=== PATIENT | male | born 1985 | race American Indian/Alaskan Native ===

== ENCOUNTER 2017-05-05 09:23 | Observation (INO) | payer MEDICAID ==
[2017-05-05 09:29] VITALS: BMI 29.9
[2017-05-05] MEDS ORDERED: Sodium Chloride 0.9% 1,000 ML IV STA (09:37)
--- NOTE | 2017-05-05 10:03 | RAD ---
PROCEDURE: CHEST RADIOGRAPH, 1 VIEW HISTORY: Diabetic COMPARISON: None available. FINDINGS: LUNGS: Clear. PLEURA: No pneumothorax or pleural fluid seen. CARDIOVASCULAR: Normal. OSSEOUS STRUCTURES: No significant abnormalities. VISUALIZED UPPER ABDOMEN: Normal. OTHER FINDINGS: None. IMPRESSION: No active disease.
[2017-05-05 10:38] LABS: URINE BILIRUBIN NEGATIVE (NEGATIVE); URINE BLOOD NEGATIVE (NEGATIVE); URINE CLARITY Clear (Clear); URINE COLOR Straw (YELLOW); URINE GLUCOSE (UA) 3+ mg/dL (Normal); URINE LEUKOCYTE ESTERASE NEG Leu/uL (Negative); URINE NITRATE NEGATIVE (NEGATIVE); URINE PROTEIN NEGATIVE (NEGATIVE); URINE UROBILINOGEN NORMAL mg/dL (0.2-1.0)
[2017-05-05 10:45] LABS: BASO # 0.1 K/uL (0.0-0.2); BASO % 1.3 % (0.0-2.0); EOS # 0.2 K/uL (0.0-0.7); EOS % 3.6 % (0.0-4.0); HEMOGLOBIN 13.3 g/dL (12.0-18.0); LYMPH # 2.6 K/uL (1.0-4.3); MEAN CELL VOLUME 75.4 fL (80.0-94.0); MEAN CORPUSCULAR HEMOGLOBIN 25.2 pg (27.0-31.0); MEAN CORPUSCULAR HGB CONC 33.4 g/dL (33.0-37.0); MEAN PLATELET VOLUME 9.2 fL (7.2-11.7); MONO # 0.3 K/uL (0.0-0.8); MONO % 5.3 % (0.0-10.0); NEUT # 2.7 K/uL (1.8-7.0); NEUT % 45.8 % (50.0-75.0); RBC 5.28 Mil/uL (4.40-5.90); RED CELL DISTRIBUTION WIDTH 16.7 % (11.5-14.5); WHITE BLOOD COUNT 5.8 K/uL (4.8-10.8)
[2017-05-05 10:51] LABS: VENOUS BLOOD GAS BASE EXCESS 3.1 mmol/L (0.0-2.0); VENOUS BLOOD GAS PCO2 56 mmHg (40-60); VENOUS BLOOD GAS PO2 12 mm/Hg (30-55); VENOUS BLOOD PH 7.34 (7.32-7.43)
--- NOTE | 2017-05-05 10:56 | C.PDOC ---
History Of Present Illness 31 year old male with a past medical history of diabetes who presents to the emergency department with a complaint of not feeling right for a couple of months and experiencing polydipsia, polyuria, and generalized weakness. Reports he went to the pharmacy and suggested to take over the counter vitamins that did not help. Denies any further medical complaints. Of note, patient was seen by his PMD yesterday, 05/04/2017, with blood work. Patient was called by PMD today and told that his sugar was over 600 and advised to visit the emergency department for further evaluation. Time Seen by Provider: 05/05/17 09:34 Chief Complaint (Nursing): High Blood Sugar History Per: Patient History/Exam Limitations: no limitations Past Medical History Reviewed: Historical Data, Nursing Documentation, Vital Signs Vital Signs: Last Vital Signs Temp 98.9 F 05/05/17 12:25 Pulse 72 05/05/17 12:25 Resp 18 05/05/17 12:25 BP 127/72 05/05/17 12:25 Pulse Ox 98 05/05/17 12:25 - Medical History PMH: Diabetes Family History: States: Diabetes - Social History Hx Alcohol Use: No Hx Substance Use: No Review Of Systems Except As Marked, All Systems Reviewed And Found Negative. (As per HPI, otherwise negative) Constitutional: Positive for: Weakness (Generalized) Genitourinary: Positive for: Other (polydipsya and polyuria) Physical Exam - Physical Exam Appears: Well, Non-toxic, Toxic Skin: Normal Color, Warm, Dry Head: Normacephalic Tongue: Normal Appearing Lips: Normal Appearing Teeth: Normal Dentition Gingiva: Normal Appearing Lymphatic: Normal Exam Respiratory: Normal Breath Sounds, No Decreased Breath Sounds, No Accessory Muscle Use Gastrointestinal/Abdominal: Normal Exam, Soft, No Tenderness Extremity: Normal ROM, No Pedal Edema Neurological/Psych: Oriented x3 Gait: Steady ED Course And Treatment - Laboratory Results Result Diagrams: 05/05/17 10:42 05/05/17 10:42 O2 Sat by Pulse Oximetry: 100 (RA) Pulse Ox Interpretation: Normal Medical Decision Making Medical Decision Making: Time: 936 --VBG --CMP --Ketone, Serum --CBC w/ diff --Chest x-ray --Sodium Chloride 1L --Urinalysis Time: 1001 --Chest x-ray FINDINGS: LUNGS: Clear. PLEURA: No pneumothorax or pleural fluid seen. CARDIOVASCULAR: Normal. OSSEOUS STRUCTURES: No significant abnormalities. VISUALIZED UPPER ABDOMEN: Normal. OTHER FINDINGS: None. IMPRESSION: No active disease. Time: 1136 --Admit to hospital routine: as observation for new oncet DM under the care of Dr. Trinity Bolanos MD Disposition - Disposition Disposition: HOSPITALIZED Disposition Time: 11:37 Condition: FAIR - Clinical Impression Clinical Impression: Diabetes mellitus, new onset Decision To Admit - Pt Status Changed To: Hospital Disposition Of: Observation - . Bed Request Type: Regular Admitting Physician: Trinity Bolanos Patient Diagnosis: Diabetes mellitus, new onset
[2017-05-05 11:04] LABS: ALB/GLOB RATIO 1.2 (1.0-2.1); ALBUMIN 4.3 g/dL (3.5-5.0); ALT/SGPT 76 U/L (21-72); AST/SGOT 78 U/L (17-59); CALCIUM 9.3 mg/dl (8.6-10.4); GFR AFRICAN-AMERICAN > 60; GFR NON-AFRICAN AMERICAN > 60
[2017-05-05 11:06] LABS: BLOOD UREA NITROGEN 14 mg/dL (9-20)
--- NOTE | 2017-05-05 11:41 | CP.PCM.HP ---
<Dot Thomas - Last Filed: 05/05/17 13:57> History of Present Illness - History of Present Illness History of Present Illness: Medicine Note for Hospitalist Service- Dr. Sales's Service CC: Sent in by PMD HPI: 31M with no significant PMHx presents to the ED after being sent in by PMD due to elevated sugars. Patient reports for the past 2 months he started to notice he had symptoms of polyphagia, polydipsia, and polyuria. He spoke to family members who are known diagnosed diabetics about his symptoms and afterwards he started to change his diet, eating more organic foods. Patient went to go see his PMD Dr. Christie (self pay) who he sees as needed. Labs were drawn. This morning, he was called by his PMD reporting his sugars were 600 and that he should go to the ED. Upon admission, patient was AAOx3, patient's sugars were 400, no anion gap, or serum ketones. Denied fever, chills, headache , chest pain, SOB, abdominal pain, n/v/d/c, or urinary symptoms. PMHx: Denied PSHx: Denied Meds: Denied All: NKDA SHx: Denied any tobacco, illicit drug use, admits to drinking wine socially FHx: Mother - HTN; Father - after MVA, Maternal and Paternal family - HTN , DM PMD: Dr. Christie (self pay) Present on Admission - Present on Admission Any Indicators Present on Admission: No Past Patient History - Past Social History Smoking Status: Never Smoked - PSYCHIATRIC Hx Substance Use: No - SURGICAL HISTORY Hx Surgeries: No - ANESTHESIA Hx Anesthesia: No Meds Allergies/Adverse Reactions: Allergies Allergy/AdvReac Type Severity Reaction Status Date / Time No Known Allergies Allergy Verified 05/05/17 09:27 Physical Exam - Constitutional Appears: No Acute Distress - Head Exam Head Exam: NORMAL INSPECTION, NORMOCEPHALIC - Eye Exam Eye Exam: EOMI, Normal appearance, PERRL - ENT Exam ENT Exam: Mucous Membranes Moist, Normal Exam - Respiratory Exam Respiratory Exam: Clear to Auscultation Bilateral, NORMAL BREATHING PATTERN - Cardiovascular Exam Cardiovascular Exam: REGULAR RHYTHM, RRR, +S1, +S2 - GI/Abdominal Exam GI & Abdominal Exam: Normal Bowel Sounds, Soft. absent: Distended, Tenderness - Extremities Exam Extremities exam: Positive for: normal inspection, pedal pulses present. Negative for: pedal edema, tenderness - Neurological Exam Neurological exam: Alert, CN II-XII Intact, Oriented x3 - Psychiatric Exam Psychiatric exam: Normal Affect, Normal Mood - Skin Skin Exam: Dry, Intact, Normal Color, Warm Results - Vital Signs Recent Vital Signs: Last Vital Signs Temp 98.3 F 05/05/17 09:32 Pulse 82 05/05/17 09:32 Resp 16 05/05/17 09:32 BP 131/86 05/05/17 09:32 Pulse Ox 100 05/05/17 11:37 - Labs Result Diagrams: 05/05/17 10:42 05/05/17 10:42 Labs: Laboratory Results - last 24 hr 05/05/17 05/05/17 05/05/17 09:26 10:29 10:42 WBC 5.8 RBC 5.28 Hgb 13.3 Hct 39.8 MCV 75.4 L MCH 25.2 L MCHC 33.4 RDW 16.7 H Plt Count 245 MPV 9.2 Neut % (Auto) 45.8 L Lymph % (Auto) 44.0 H Cross % (Auto) 5.3 Eos % (Auto) 3.6 Baso % (Auto) 1.3 Neut # (Auto) 2.7 Lymph # (Auto) 2.6 Cross # (Auto) 0.3 Eos # (Auto) 0.2 Baso # (Auto) 0.1 pO2 VBG pH VBG pCO2 VBG HCO3 VBG Total CO2 VBG O2 Sat (Calc) VBG Base Excess VBG Potassium Glucose Lactate Crit Value Called To Crit Value Called By Crit Value Read Back Blood Gas Notified Time Sodium Potassium Chloride Carbon Dioxide Anion Gap BUN Creatinine Est GFR ( Amer) Est GFR (Non-Af Amer) POC Glucose (mg/dL) 411 H* Random Glucose Calcium Total Bilirubin AST ALT Alkaline Phosphatase Total Protein Albumin Globulin Albumin/Globulin Ratio Venous Blood Potassium Urine Color Straw Urine Clarity Clear Urine pH 5.0 Ur Specific [place] 1.040 H Urine Protein Negative Urine Glucose (UA) 3+ H Urine Ketones 2+ H Urine Blood Negative Urine Nitrate Negative Urine Bilirubin Negative Urine Urobilinogen Normal Ur Leukocyte Esterase Neg Urine WBC (Auto) 2 Urine RBC (Auto) 1 Serum Ketones 05/05/17 05/05/17 05/05/17 10:42 10:45 11:06 WBC RBC Hgb Hct MCV MCH MCHC RDW Plt Count MPV Neut % (Auto) Lymph % (Auto) Cross % (Auto) Eos % (Auto) Baso % (Auto) Neut # (Auto) Lymph # (Auto) Cross # (Auto) Eos # (Auto) Baso # (Auto) pO2 12 L VBG pH 7.34 VBG pCO2 56 VBG HCO3 25.0 VBG Total CO2 31.9 H VBG O2 Sat (Calc) 18.6 L VBG Base Excess 3.1 H VBG Potassium 4.0 Glucose 402 H* Lactate 1.3 Crit Value Called To Mau pang rn Crit Value Called By Mr Crit Value Read Back Y Blood Gas Notified Time 1050 Sodium 135 136.0 Potassium 4.0 Chloride 95 L 97.0 L Carbon Dioxide 27 Anion Gap 18 BUN 14 Creatinine 0.8 Est GFR ( Amer) > 60 Est GFR (Non-Af Amer) > 60 POC Glucose (mg/dL) 379 H Random Glucose 408 H* Calcium 9.3 Total Bilirubin 0.5 AST 78 H ALT 76 H Alkaline Phosphatase 90 Total Protein 8.0 Albumin 4.3 Globulin 3.7 Albumin/Globulin Ratio 1.2 Venous Blood Potassium 4.0 Urine Color Urine Clarity Urine pH Ur Specific [place] Urine Protein Urine Glucose (UA) Urine Ketones Urine Blood Urine Nitrate Urine Bilirubin Urine Urobilinogen Ur Leukocyte Esterase Urine WBC (Auto) Urine RBC (Auto) Serum Ketones Small Assessment & Plan - Assessment and Plan (Free Text) Assessment: 31M with no significant PMHx presents to the ED after being sent in by PMD due to elevated sugars, new onset diabetes. Plan: New Onset DM Sugars in PMD's office was 600 On admission sugars 400 After receiving 1 L bolus of NS, sugars dropped to 325 Accuchecks Carb Consistent Diet Diabetic Education Will need to apply for [employer] +/- fill out application for insulin foundation Will trend sugars overnight to start him on insulin regimen Type 1 vs Type 2: F/U Fasting Insulin, WERNER, and C-peptide F/U lipid panel, TSH, T4, A1C Meds: NS @ 100cc/hr ISS-low Lisinopril 2.5mg PO daily (renal protection) Crestor 2.5mg PO daily Transaminitis F/U Hep panel Prophylactic Measures GI PPX: Pepcid 20mg PO BID DVT PPX: VTE - not indicate RISK Score 1: Patient ambulates Disposition: Will determine insulin regimen, diabetic counseling, and establish follow up with [facility] prior to discharge. DW Dot Edward DO, PGY-1 <Junito Veras - Last Filed: 05/05/17 17:38> Results - Vital Signs Recent Vital Signs: Last Vital Signs Temp 98.1 F 05/05/17 16:06 Pulse 66 05/05/17 16:06 Resp 20 05/05/17 16:06 BP 111/62 05/05/17 16:06 Pulse Ox 97 05/05/17 16:06 - Labs Result Diagrams: 05/05/17 10:42 05/05/17 10:42 Labs: Laboratory Results - last 24 hr 05/05/17 05/05/17 05/05/17 09:26 10:29 10:40 WBC RBC Hgb Hct MCV MCH MCHC RDW Plt Count MPV Neut % (Auto) Lymph % (Auto) Cross % (Auto) Eos % (Auto) Baso % (Auto) Neut # (Auto) Lymph # (Auto) Cross # (Auto) Eos # (Auto) Baso # (Auto) pO2 VBG pH VBG pCO2 VBG HCO3 VBG Total CO2 VBG O2 Sat (Calc) VBG Base Excess VBG Potassium Glucose Lactate Crit Value Called To Crit Value Called By Crit Value Read Back Blood Gas Notified Time Sodium Potassium Chloride Carbon Dioxide Anion Gap BUN Creatinine Est GFR ( Amer) Est GFR (Non-Af Amer) POC Glucose (mg/dL) 411 H* Random Glucose Calcium Total Bilirubin AST ALT Alkaline Phosphatase Total Protein Albumin Globulin Albumin/Globulin Ratio Triglycerides Cholesterol LDL Cholesterol Direct HDL Cholesterol Free T4 1.41 TSH 3rd Generation Venous Blood Potassium Urine Color Straw Urine Clarity Clear Urine pH 5.0 Ur Specific [place] 1.040 H Urine Protein Negative Urine Glucose (UA) 3+ H Urine Ketones 2+ H Urine Blood Negative Urine Nitrate Negative Urine Bilirubin Negative Urine Urobilinogen Normal Ur Leukocyte Esterase Neg Urine WBC (Auto) 2 Urine RBC (Auto) 1 Serum Ketones 05/05/17 05/05/17 05/05/17 10:42 10:42 10:45 WBC 5.8 RBC 5.28 Hgb 13.3 Hct 39.8 MCV 75.4 L MCH 25.2 L MCHC 33.4 RDW 16.7 H Plt Count 245 MPV 9.2 Neut % (Auto) 45.8 L Lymph % (Auto) 44.0 H Cross % (Auto) 5.3 Eos % (Auto) 3.6 Baso % (Auto) 1.3 Neut # (Auto) 2.7 Lymph # (Auto) 2.6 Cross # (Auto) 0.3 Eos # (Auto) 0.2 Baso # (Auto) 0.1 pO2 12 L VBG pH 7.34 VBG pCO2 56 VBG HCO3 25.0 VBG Total CO2 31.9 H VBG O2 Sat (Calc) 18.6 L VBG Base Excess 3.1 H VBG Potassium 4.0 Glucose 402 H* Lactate 1.3 Crit Value Called To Mau pang rn Crit Value Called By Mr Crit Value Read Back Y Blood Gas Notified Time 1050 Sodium 135 136.0 Potassium 4.0 Chloride 95 L 97.0 L Carbon Dioxide 27 Anion Gap 18 BUN 14 Creatinine 0.8 Est GFR ( Amer) > 60 Est GFR (Non-Af Amer) > 60 POC Glucose (mg/dL) Random Glucose 408 H* Calcium 9.3 Total Bilirubin 0.5 AST 78 H ALT 76 H Alkaline Phosphatase 90 Total Protein 8.0 Albumin 4.3 Globulin 3.7 Albumin/Globulin Ratio 1.2 Triglycerides 213 H Cholesterol 235 H LDL Cholesterol Direct 152 H HDL Cholesterol 23 L Free T4 TSH 3rd Generation Venous Blood Potassium 4.0 Urine Color Urine Clarity Urine pH Ur Specific [place] Urine Protein Urine Glucose (UA) Urine Ketones Urine Blood Urine Nitrate Urine Bilirubin Urine Urobilinogen Ur Leukocyte Esterase Urine WBC (Auto) Urine RBC (Auto) Serum Ketones Small 05/05/17 05/05/17 05/05/17 11:06 12:25 13:05 WBC RBC Hgb Hct MCV MCH MCHC RDW Plt Count MPV Neut % (Auto) Lymph % (Auto) Cross % (Auto) Eos % (Auto) Baso % (Auto) Neut # (Auto) Lymph # (Auto) Cross # (Auto) Eos # (Auto) Baso # (Auto) pO2 VBG pH VBG pCO2 VBG HCO3 VBG Total CO2 VBG O2 Sat (Calc) VBG Base Excess VBG Potassium Glucose Lactate Crit Value Called To Crit Value Called By Crit Value Read Back Blood Gas Notified Time Sodium Potassium Chloride Carbon Dioxide Anion Gap BUN Creatinine Est GFR ( Amer) Est GFR (Non-Af Amer) POC Glucose (mg/dL) 379 H 325 H Random Glucose Calcium Total Bilirubin AST ALT Alkaline Phosphatase Total Protein Albumin Globulin Albumin/Globulin Ratio Triglycerides Cholesterol LDL Cholesterol Direct HDL Cholesterol Free T4 TSH 3rd Generation 0.43 L Venous Blood Potassium Urine Color Urine Clarity Urine pH Ur Specific [place] Urine Protein Urine Glucose (UA) Urine Ketones Urine Blood Urine Nitrate Urine Bilirubin Urine Urobilinogen Ur Leukocyte Esterase Urine WBC (Auto) Urine RBC (Auto) Serum Ketones 05/05/17 17:10 WBC RBC Hgb Hct MCV MCH MCHC RDW Plt Count MPV Neut % (Auto) Lymph % (Auto) Cross % (Auto) Eos % (Auto) Baso % (Auto) Neut # (Auto) Lymph # (Auto) Cross # (Auto) Eos # (Auto) Baso # (Auto) pO2 VBG pH VBG pCO2 VBG HCO3 VBG Total CO2 VBG O2 Sat (Calc) VBG Base Excess VBG Potassium Glucose Lactate Crit Value Called To Crit Value Called By Crit Value Read Back Blood Gas Notified Time Sodium Potassium Chloride Carbon Dioxide Anion Gap BUN Creatinine Est GFR ( Amer) Est GFR (Non-Af Amer) POC Glucose (mg/dL) 351 H Random Glucose Calcium Total Bilirubin AST ALT Alkaline Phosphatase Total Protein Albumin Globulin Albumin/Globulin Ratio Triglycerides Cholesterol LDL Cholesterol Direct HDL Cholesterol Free T4 TSH 3rd Generation Venous Blood Potassium Urine Color Urine Clarity Urine pH Ur Specific [place] Urine Protein Urine Glucose (UA) Urine Ketones Urine Blood Urine Nitrate Urine Bilirubin Urine Urobilinogen Ur Leukocyte Esterase Urine WBC (Auto) Urine RBC (Auto) Serum Ketones Attending/Attestation - Attestation I have personally seen and examined this patient.: Yes I have fully participated in the care of the patient.: Yes I have reviewed all pertinent clinical information: Yes Notes (Text): Patient was seen and examined case discussed with the resident patient was explained about sugar control,manage his diabetes mellitus, hypoglycemia and loan service officer diabetes complication He will have DM education. Patient's mother at bedside ,she understand his diabetes mellitus I will start on Novolin 70/30 because its cheap/No insurance and concern about money. check LFT,do hep profile. We will follow his sugar 05/05/17 17:33
[2017-05-05] MEDS ORDERED: (Novolin R) Insulin Human Regular 100 units/ml vial SC ONE ×2 (12:19→12:45)
[2017-05-05] MEDS ORDERED: (Novolog) Insulin Aspart, Recombinant 100 u/ml 10 ml vial ONE (12:23)
[2017-05-05] MEDS: Sodium Chloride 0.9% 1,000 ML IV SCH (12:24)
[2017-05-05 13:44] LABS: HDL CHOLESTEROL 23 mg/dL (30-70)
[2017-05-05 13:55] LABS: LDL CHOLESTEROL 152 mg/dL (0-129)
[2017-05-05 16:28] VITALS: RESP 20
[2017-05-05] MEDS: (Novolin R) Insulin Human Regular 100 units/ml vial SC SCH ×2 (17:39→22:57)
[2017-05-05] MEDS ORDERED: Rosuvastatin Calcium 2.5 mg Tab PO SCH (22:00)
[2017-05-06] MEDS: (Novolin 70/30) NPH/Regular 70/30 Units/ml 10 ml vial SC SCH (08:24)
[2017-05-06] MEDS: (Novolin R) Insulin Human Regular 100 units/ml vial SC SCH ×4 (08:24→22:35)
[2017-05-06] MEDS: Sodium Chloride 0.9% 1,000 ML IV SCH ×2 (08:32→22:36)
[2017-05-06 08:39] LABS: HEPATITIS B SURFACE AG Negative (NEGATIVE)
[2017-05-06 08:46] LABS: HEPATITIS A IGM NEGATIVE (NEGATIVE); HEPATITIS B CORE AB NEGATIVE (NEGATIVE)
[2017-05-06 08:55] LABS: HEPATITIS C ANTIBODY NEGATIVE (NEGATIVE)
[2017-05-06 09:04] LABS: BASO # 0.1 K/uL (0.0-0.2); BASO % 0.7 % (0.0-2.0); EOS # 0.3 K/uL (0.0-0.7); EOS % 4.6 % (0.0-4.0); HEMOGLOBIN 12.6 g/dL (12.0-18.0); LYMPH # 4.1 K/uL (1.0-4.3); LYMPH % 54.5 % (20.0-40.0); MEAN CELL VOLUME 75.2 fL (80.0-94.0); MEAN CORPUSCULAR HEMOGLOBIN 25.6 pg (27.0-31.0); MEAN PLATELET VOLUME 9.7 fL (7.2-11.7); MONO # 0.4 K/uL (0.0-0.8); MONO % 5.9 % (0.0-10.0); NEUT # 2.6 K/uL (1.8-7.0); NEUT % 34.3 % (50.0-75.0); RBC 4.95 Mil/uL (4.40-5.90); RED CELL DISTRIBUTION WIDTH 16.8 % (11.5-14.5); WHITE BLOOD COUNT 7.5 K/uL (4.8-10.8)
[2017-05-06 09:21] LABS: ALB/GLOB RATIO 1.1 (1.0-2.1); ALBUMIN 3.7 g/dL (3.5-5.0); ALT/SGPT 71 U/L (21-72); AST/SGOT 68 U/L (17-59); BLOOD UREA NITROGEN 9 mg/dL (9-20); CALCIUM 8.9 mg/dl (8.6-10.4); GFR AFRICAN-AMERICAN > 60; GFR NON-AFRICAN AMERICAN > 60; MAGNESIUM 1.6 mg/dL (1.6-2.3)
[2017-05-06] MEDS ORDERED: Pneumococcal 23-Valent Vaccine IM ONE (10:00)
[2017-05-06] MEDS ORDERED: Influenza Vaccine 60 mcg/0.5 mL SYR (4YR UP) IM ONE (10:00)
--- NOTE | 2017-05-06 15:36 | CP.PCM.DIS ---
Addendum entered and electronically signed by Dot Thomas DO 05/06/17 17:09 : Discharged delayed due to lack of financial means to pay for his insulin. Tomorrow [facility] care form will be sent down for his medications after recommendations from Endocrinology to help better manage his new onset diabetes. Original Note: <Dot Thomas - Last Filed: 05/06/17 15:36> Provider - Provider Date of Admission: 05/05/17 11:36 Attending physician: Trinity Bolanos DO Time Spent in preparation of Discharge (in minutes): 55 Hospital Course - Lab Results Lab Results: Most Recent Lab Values WBC 7.5 K/uL (4.8-10.8) 05/06/17 08:42 RBC 4.95 Mil/uL (4.40-5.90) 05/06/17 08:42 Hgb 12.6 g/dL (12.0-18.0) 05/06/17 08:42 Hct 37.2 % (35.0-51.0) 05/06/17 08:42 MCV 75.2 fL (80.0-94.0) L 05/06/17 08:42 MCH 25.6 pg (27.0-31.0) L 05/06/17 08:42 MCHC 34.0 g/dL (33.0-37.0) 05/06/17 08:42 RDW 16.8 % (11.5-14.5) H 05/06/17 08:42 Plt Count 257 K/uL (130-400) 05/06/17 08:42 MPV 9.7 fL (7.2-11.7) 05/06/17 08:42 Neut % (Auto) 34.3 % (50.0-75.0) L 05/06/17 08:42 Lymph % (Auto) 54.5 % (20.0-40.0) H 05/06/17 08:42 Overton % (Auto) 5.9 % (0.0-10.0) 05/06/17 08:42 Eos % (Auto) 4.6 % (0.0-4.0) H 05/06/17 08:42 Baso % (Auto) 0.7 % (0.0-2.0) 05/06/17 08:42 Neut # (Auto) 2.6 K/uL (1.8-7.0) 05/06/17 08:42 Lymph # (Auto) 4.1 K/uL (1.0-4.3) 05/06/17 08:42 Overton # (Auto) 0.4 K/uL (0.0-0.8) 05/06/17 08:42 Eos # (Auto) 0.3 K/uL (0.0-0.7) 05/06/17 08:42 Baso # (Auto) 0.1 K/uL (0.0-0.2) 05/06/17 08:42 pO2 12 mm/Hg (30-55) L 05/05/17 10:45 VBG pH 7.34 (7.32-7.43) 05/05/17 10:45 VBG pCO2 56 mmHg (40-60) 05/05/17 10:45 VBG HCO3 25.0 mmol/L 05/05/17 10:45 VBG Total CO2 31.9 mmol/L (22-28) H 05/05/17 10:45 VBG O2 Sat (Calc) 18.6 % (40-65) L 05/05/17 10:45 VBG Base Excess 3.1 mmol/L (0.0-2.0) H 05/05/17 10:45 VBG Potassium 4.0 mmol/L (3.6-5.2) 05/05/17 10:45 Sodium 136.0 mmol/l (132-148) 05/05/17 10:45 Chloride 97.0 mmol/L (98-107) L 05/05/17 10:45 Glucose 402 mg/dl (75-110) H* 05/05/17 10:45 Lactate 1.3 mmol/L (0.7-2.1) 05/05/17 10:45 Crit Value Called To Mau pang rn 05/05/17 10:45 Crit Value Called By Mr 05/05/17 10:45 Crit Value Read Back Y 05/05/17 10:45 Blood Gas Notified Time 1050 05/05/17 10:45 Sodium 137 mmol/L (132-148) 05/06/17 08:42 Potassium 4.0 mmol/L (3.6-5.2) 05/06/17 08:42 Chloride 101 mmol/L (98-107) 05/06/17 08:42 Carbon Dioxide 23 mmol/L (22-30) 05/06/17 08:42 Anion Gap 17 (10-20) 05/06/17 08:42 BUN 9 mg/dL (9-20) 05/06/17 08:42 Creatinine 0.7 mg/dL (0.8-1.5) L 05/06/17 08:42 Est GFR ( Amer) > 60 05/06/17 08:42 Est GFR (Non-Af Amer) > 60 05/06/17 08:42 POC Glucose (mg/dL) 280 mg/dL (65-110) H 05/06/17 11:54 Random Glucose 293 mg/dL (75-110) H 05/06/17 08:42 Hemoglobin A1c 13.7 % (4.2-6.5) H 05/05/17 12:19 Calcium 8.9 mg/dl (8.6-10.4) 05/06/17 08:42 Phosphorus 3.2 mg/dL (2.5-4.5) 05/06/17 08:42 Magnesium 1.6 mg/dL (1.6-2.3) 05/06/17 08:42 Total Bilirubin 0.4 mg/dL (0.2-1.3) 05/06/17 08:42 AST 68 U/L (17-59) H 05/06/17 08:42 ALT 71 U/L (21-72) 05/06/17 08:42 Alkaline Phosphatase 76 U/L (38-126) 05/06/17 08:42 Total Protein 7.2 g/dL (6.3-8.3) 05/06/17 08:42 Albumin 3.7 g/dL (3.5-5.0) 05/06/17 08:42 Globulin 3.5 gm/dL (2.2-3.9) 05/06/17 08:42 Albumin/Globulin Ratio 1.1 (1.0-2.1) 05/06/17 08:42 Triglycerides 213 mg/dL (0-149) H 05/05/17 10:42 Cholesterol 235 mg/dL (0-199) H 05/05/17 10:42 LDL Cholesterol Direct 152 mg/dL (0-129) H 05/05/17 10:42 HDL Cholesterol 23 mg/dL (30-70) L 05/05/17 10:42 Free T4 1.41 ng/dL (0.78-2.19) 05/05/17 10:40 TSH 3rd Generation 0.43 mIU/L (0.46-4.68) L 05/05/17 13:05 Venous Blood Potassium 4.0 mmol/L (3.6-5.2) 05/05/17 10:45 Urine Color Straw (YELLOW) 05/05/17 10:29 Urine Clarity Clear (Clear) 05/05/17 10:29 Urine pH 5.0 (5.0-8.0) 05/05/17 10:29 Ur Specific [place] 1.040 (1.003-1.030) H 05/05/17 10:29 Urine Protein Negative mg/dL (NEGATIVE) 05/05/17 10:29 Urine Glucose (UA) 3+ mg/dL (Normal) H 05/05/17 10:29 Urine Ketones 2+ mg/dL (NEGATIVE) H 05/05/17 10:29 Urine Blood Negative (NEGATIVE) 05/05/17 10:29 Urine Nitrate Negative (NEGATIVE) 05/05/17 10:29 Urine Bilirubin Negative (NEGATIVE) 05/05/17 10:29 Urine Urobilinogen Normal mg/dL (0.2-1.0) 05/05/17 10:29 Ur Leukocyte Esterase Neg Bassam/uL (Negative) 05/05/17 10:29 Urine WBC (Auto) 2 /hpf (0-5) 05/05/17 10:29 Urine RBC (Auto) 1 /hpf (0-3) 05/05/17 10:29 Serum Ketones Small (NEGATIVE) 05/05/17 10:42 Hepatitis A IgM Ab Negative (NEGATIVE) 05/05/17 13:06 Hep Bs Antigen Negative (NEGATIVE) 05/05/17 13:06 Hep B Core IgM Ab Negative (NEGATIVE) 05/05/17 13:06 Hepatitis C Antibody Negative (NEGATIVE) 05/05/17 13:06 - Hospital Course Hospital Course: Upon Admission: CC: Sent in by PMD HPI: 31M with no significant PMHx presents to the ED after being sent in by PMD due to elevated sugars. Patient reports for the past 2 months he started to notice he had symptoms of polyphagia, polydipsia, and polyuria. He spoke to family members who are known diagnosed diabetics about his symptoms and afterwards he started to change his diet, eating more organic foods. Patient went to go see his PMD Dr. Christie (self pay) who he sees as needed. Labs were drawn. This morning, he was called by his PMD reporting his sugars were 600 and that he should go to the ED. Upon admission, patient was AAOx3, patient's sugars were 400, no anion gap, or serum ketones. Denied fever, chills, headache , chest pain, SOB, abdominal pain, n/v/d/c, or urinary symptoms. PMHx: Denied PSHx: Denied Meds: Denied All: NKDA SHx: Denied any tobacco, illicit drug use, admits to drinking wine socially FHx: Mother - HTN; Father - after MVA, Maternal and Paternal family - HTN , DM PMD: Dr. Christie (self pay) Throughout Hospital Course: Patient was admitted for new onset DM. New Onset DM Sugars in PMD's office was 600 On admission sugars 400 After receiving 1 L bolus of NS, sugars dropped to 325 Accuchecks Carb Consistent Diet Diabetic Education Will need to apply for [facility] +/- fill out application for insulin foundation Will trend sugars overnight to start him on insulin regimen A1C - 13.7 Type 1 vs Type 2: F/U Fasting Insulin, WERNER, and C-peptide - when patient is seen in Clinic - will follow up results TSH, T4- Euthyroid Lipid panel- T, Cholesterol 235, LDL 152, HDL 23 Meds: NS @ 100cc/hr ISS-low Lisinopril 2.5mg PO daily (renal protection) Crestor 2.5mg PO daily - HELD Due to transaminitis Transaminitis Hep panel - negative Downtrending Discharge Exam - Additional Findings Additional findings: - Constitutional Appears: No Acute Distress - Head Exam Head Exam: NORMAL INSPECTION, NORMOCEPHALIC - Eye Exam Eye Exam: EOMI, Normal appearance, PERRL - ENT Exam ENT Exam: Mucous Membranes Moist, Normal Exam - Respiratory Exam Respiratory Exam: Clear to Auscultation Bilateral, NORMAL BREATHING PATTERN - Cardiovascular Exam Cardiovascular Exam: REGULAR RHYTHM, RRR, +S1, +S2 - GI/Abdominal Exam GI & Abdominal Exam: Normal Bowel Sounds, Soft. absent: Distended, Tenderness - Extremities Exam Extremities exam: Positive for: normal inspection, pedal pulses present. Negative for: pedal edema, tenderness - Neurological Exam Neurological exam: Alert, CN II-XII Intact, Oriented x3 - Psychiatric Exam Psychiatric exam: Normal Affect, Normal Mood - Skin Skin Exam: Dry, Intact, Normal Color, Warm Discharge Plan - Discharge Medications Prescriptions: Lisinopril [Zestril] 2.5 mg PO DAILY #30 tab - Follow Up Plan Condition: FAIR Disposition: HOME/ ROUTINE Instructions: Insulin NPH, Type 2 Diabetes, Hyperglycemia, Adult, Diabetes Exchange Diet, Low Blood Sugar, Adult (DC), Diabetes Diet , Hyperglycemia, Adult (DC), Blood Glucose Monitoring, [place]-3 Fatty Acids, Lisinopril Additional Instructions: You were diagnosed with Diabetes Mellitus. Your hemoglobin A1C is 13.7. You are to continue taking the following medications until a Doctor (either your primary care physician or a physician at our [facility]). NOVOLOG 70/30 Flex Pen 26 units subcutaneous before BREAKFAST NOVOLOG 70/30 Flex Pen 12 units subcutaneous before DINNER Lisinopril 2.5mg by mouth to protect your kidneys now that you are diabetic Please take over the counter fish oil to help bring up your good cholesterol (HDL) which is low; this type of cholesterol help protects your heart. You will need to check your sugars 4 times a day and keep a log of all your sugars so that we can adjust your medications. CHECK YOUR SUGARS: BEFORE BREAKFAST BEFORE LUNCH BEFORE DINNER BEFORE YOU GO TO BED If you sugar is below 70 whenever you check: DO NOT TAKE ANY INSULIN. Please drink orange or apple juice and call someone to help you. After 15-20 minutes passes, check your sugar again. If it still remains below 70 PLEASE CALL AN AMBULANCE TO COME TO THE HOSPITAL. You will need to change your diet and exercise to help better control your sugars. Please follow up with either Dr. Christie or with us here in the [facility] so you can establish care and get a referral for an embedded firmware engineer (vaccines solutions specialist). You will need a referral for an embedded firmware engineer. You will need to monitor your A1C, Lipid Panel, and your liver enzymes. You will need to follow up the labs that were done here to see if you need type 1 versus type 2 diabetes (if you come to the [facility] it will be easy to for us to go over the results with you; since we have access to your files). Referrals: [facility] [Outside] <Edward Verasjefersontawanna - Last Filed: 05/06/17 18:29> Provider - Provider Date of Admission: 05/05/17 11:36 Attending physician: Trinity Bolanos, DO Hospital Course - Lab Results Lab Results: Most Recent Lab Values WBC 7.5 K/uL (4.8-10.8) 05/06/17 08:42 RBC 4.95 Mil/uL (4.40-5.90) 05/06/17 08:42 Hgb 12.6 g/dL (12.0-18.0) 05/06/17 08:42 Hct 37.2 % (35.0-51.0) 05/06/17 08:42 MCV 75.2 fL (80.0-94.0) L 05/06/17 08:42 MCH 25.6 pg (27.0-31.0) L 05/06/17 08:42 MCHC 34.0 g/dL (33.0-37.0) 05/06/17 08:42 RDW 16.8 % (11.5-14.5) H 05/06/17 08:42 Plt Count 257 K/uL (130-400) 05/06/17 08:42 MPV 9.7 fL (7.2-11.7) 05/06/17 08:42 Neut % (Auto) 34.3 % (50.0-75.0) L 05/06/17 08:42 Lymph % (Auto) 54.5 % (20.0-40.0) H 05/06/17 08:42 Overton % (Auto) 5.9 % (0.0-10.0) 05/06/17 08:42 Eos % (Auto) 4.6 % (0.0-4.0) H 05/06/17 08:42 Baso % (Auto) 0.7 % (0.0-2.0) 05/06/17 08:42 Neut # (Auto) 2.6 K/uL (1.8-7.0) 05/06/17 08:42 Lymph # (Auto) 4.1 K/uL (1.0-4.3) 05/06/17 08:42 Overton # (Auto) 0.4 K/uL (0.0-0.8) 05/06/17 08:42 Eos # (Auto) 0.3 K/uL (0.0-0.7) 05/06/17 08:42 Baso # (Auto) 0.1 K/uL (0.0-0.2) 05/06/17 08:42 pO2 12 mm/Hg (30-55) L 05/05/17 10:45 VBG pH 7.34 (7.32-7.43) 05/05/17 10:45 VBG pCO2 56 mmHg (40-60) 05/05/17 10:45 VBG HCO3 25.0 mmol/L 05/05/17 10:45 VBG Total CO2 31.9 mmol/L (22-28) H 05/05/17 10:45 VBG O2 Sat (Calc) 18.6 % (40-65) L 05/05/17 10:45 VBG Base Excess 3.1 mmol/L (0.0-2.0) H 05/05/17 10:45 VBG Potassium 4.0 mmol/L (3.6-5.2) 05/05/17 10:45 Sodium 136.0 mmol/l (132-148) 05/05/17 10:45 Chloride 97.0 mmol/L (98-107) L 05/05/17 10:45 Glucose 402 mg/dl (75-110) H* 05/05/17 10:45 Lactate 1.3 mmol/L (0.7-2.1) 05/05/17 10:45 Crit Value Called To Mau pang rn 05/05/17 10:45 Crit Value Called By Mr 05/05/17 10:45 Crit Value Read Back Y 05/05/17 10:45 Blood Gas Notified Time 1050 05/05/17 10:45 Sodium 137 mmol/L (132-148) 05/06/17 08:42 Potassium 4.0 mmol/L (3.6-5.2) 05/06/17 08:42 Chloride 101 mmol/L (98-107) 05/06/17 08:42 Carbon Dioxide 23 mmol/L (22-30) 05/06/17 08:42 Anion Gap 17 (10-20) 05/06/17 08:42 BUN 9 mg/dL (9-20) 05/06/17 08:42 Creatinine 0.7 mg/dL (0.8-1.5) L 05/06/17 08:42 Est GFR ( Amer) > 60 05/06/17 08:42 Est GFR (Non-Af Amer) > 60 05/06/17 08:42 POC Glucose (mg/dL) 249 mg/dL (65-110) H 05/06/17 16:19 Random Glucose 293 mg/dL (75-110) H 05/06/17 08:42 Hemoglobin A1c 13.7 % (4.2-6.5) H 05/05/17 12:19 Calcium 8.9 mg/dl (8.6-10.4) 05/06/17 08:42 Phosphorus 3.2 mg/dL (2.5-4.5) 05/06/17 08:42 Magnesium 1.6 mg/dL (1.6-2.3) 05/06/17 08:42 Total Bilirubin 0.4 mg/dL (0.2-1.3) 05/06/17 08:42 AST 68 U/L (17-59) H 05/06/17 08:42 ALT 71 U/L (21-72) 05/06/17 08:42 Alkaline Phosphatase 76 U/L (38-126) 05/06/17 08:42 Total Protein 7.2 g/dL (6.3-8.3) 05/06/17 08:42 Albumin 3.7 g/dL (3.5-5.0) 05/06/17 08:42 Globulin 3.5 gm/dL (2.2-3.9) 05/06/17 08:42 Albumin/Globulin Ratio 1.1 (1.0-2.1) 05/06/17 08:42 Triglycerides 213 mg/dL (0-149) H 05/05/17 10:42 Cholesterol 235 mg/dL (0-199) H 05/05/17 10:42 LDL Cholesterol Direct 152 mg/dL (0-129) H 05/05/17 10:42 HDL Cholesterol 23 mg/dL (30-70) L 05/05/17 10:42 Free T4 1.41 ng/dL (0.78-2.19) 05/05/17 10:40 TSH 3rd Generation 0.43 mIU/L (0.46-4.68) L 05/05/17 13:05 Venous Blood Potassium 4.0 mmol/L (3.6-5.2) 05/05/17 10:45 Urine Color Straw (YELLOW) 05/05/17 10:29 Urine Clarity Clear (Clear) 05/05/17 10:29 Urine pH 5.0 (5.0-8.0) 05/05/17 10:29 Ur Specific [place] 1.040 (1.003-1.030) H 05/05/17 10:29 Urine Protein Negative mg/dL (NEGATIVE) 05/05/17 10:29 Urine Glucose (UA) 3+ mg/dL (Normal) H 05/05/17 10:29 Urine Ketones 2+ mg/dL (NEGATIVE) H 05/05/17 10:29 Urine Blood Negative (NEGATIVE) 05/05/17 10:29 Urine Nitrate Negative (NEGATIVE) 05/05/17 10:29 Urine Bilirubin Negative (NEGATIVE) 05/05/17 10:29 Urine Urobilinogen Normal mg/dL (0.2-1.0) 05/05/17 10:29 Ur Leukocyte Esterase Neg Bassam/uL (Negative) 05/05/17 10:29 Urine WBC (Auto) 2 /hpf (0-5) 05/05/17 10:29 Urine RBC (Auto) 1 /hpf (0-3) 05/05/17 10:29 Serum Ketones Small (NEGATIVE) 05/05/17 10:42 Hepatitis A IgM Ab Negative (NEGATIVE) 05/05/17 13:06 Hep Bs Antigen Negative (NEGATIVE) 05/05/17 13:06 Hep B Core IgM Ab Negative (NEGATIVE) 05/05/17 13:06 Hepatitis C Antibody Negative (NEGATIVE) 05/05/17 13:06 Attending/Attestation - Attestation I have personally seen and examined this patient.: Yes I have fully participated in the care of the patient.: Yes I have reviewed all pertinent clinical information, including history, physical exam and plan: Yes Notes (Text): Patient was seen and examined explained about insulin ,finger stick,hypoglycemia and follow up. Patient is not comfortable using syringes and needle. He need financial assistance for Insulin pen. He also have hard time in understanding dose adjustments. we will get endocrine consult and inclusion special educator visit before discharge. Discharge tomorrow. 05/06/17 18:25
[2017-05-06] MEDS ORDERED: (Novolin 70/30) NPH/Regular 70/30 Units/ml 10 ml vial SC SCH (16:30)
[2017-05-07] MEDS: Sodium Chloride 0.9% 1,000 ML IV SCH (05:46)
[2017-05-07 07:50] LABS: BASO # 0.1 K/uL (0.0-0.2); BASO % 0.8 % (0.0-2.0); EOS # 0.4 K/uL (0.0-0.7); EOS % 5.6 % (0.0-4.0); HEMOGLOBIN 12.5 g/dL (12.0-18.0); LYMPH # 3.3 K/uL (1.0-4.3); LYMPH % 51.8 % (20.0-40.0); MEAN CELL VOLUME 74.6 fL (80.0-94.0); MEAN CORPUSCULAR HEMOGLOBIN 25.1 pg (27.0-31.0); MEAN CORPUSCULAR HGB CONC 33.7 g/dL (33.0-37.0); MEAN PLATELET VOLUME 9.2 fL (7.2-11.7); MONO # 0.4 K/uL (0.0-0.8); MONO % 7.1 % (0.0-10.0); NEUT # 2.2 K/uL (1.8-7.0); NEUT % 34.7 % (50.0-75.0); RBC 4.96 Mil/uL (4.40-5.90); WHITE BLOOD COUNT 6.3 K/uL (4.8-10.8)
[2017-05-07] MEDS: (Novolin R) Insulin Human Regular 100 units/ml vial SC SCH ×3 (08:04→17:11)
[2017-05-07 08:16] LABS: ALB/GLOB RATIO 1.2 (1.0-2.1); ALBUMIN 3.7 g/dL (3.5-5.0); ALT/SGPT 56 U/L (21-72); AST/SGOT 41 U/L (17-59); BLOOD UREA NITROGEN 13 mg/dL (9-20); GFR AFRICAN-AMERICAN > 60; GFR NON-AFRICAN AMERICAN > 60; MAGNESIUM 1.6 mg/dL (1.6-2.3)
[2017-05-07 08:44] VITALS: BP 126/74; PULSE 71; TEMP 97.5; O2SAT 99
[2017-05-07] MEDS: (Novolin 70/30) NPH/Regular 70/30 Units/ml 10 ml vial SC SCH (09:29)
[2017-05-07] MEDS ORDERED: (Novolin 70/30) NPH/Regular 70/30 Units/ml 10 ml vial SC SCH ×2 (16:30)
--- NOTE | 2017-05-08 04:26 | PN ---
DATE: This is a 31-year-old male with recent uncontrolled type 2 insulin requiring diabetes, now being followed closely for metabolic management. His glycemic levels are fluctuating, but much improved at this time and the latest glucose levels have ranged from 173 to 204 and 298 mg per dL. His latest chemistry showed a BUN of 13, sodium 139, potassium 4.0, chloride 102, CO2 of 25, glucose 186, and creatinine 0.8. So at this time, we will modify once again his premixed insulin regimen and increase the Novolin 70/30 to 30 units before breakfast and 14 units before dinner to start today. We will continue the modified coverage scale as ordered. We will obtain serial chemistries and supplement accordingly as needed. We will follow. Meri Crow MD
--- NOTE | 2017-05-08 07:07 | CON ---
DATE: ENDOCRINOLOGY FOLLOWUP NOTE HISTORY OF PRESENT ILLNESS: This is a 31-year-old male with recent evaluation and diagnosis of type 2 insulin-requiring diabetes and is now being referred for diabetic evaluation and management. PAST MEDICAL HISTORY: Essentially unremarkable. FAMILY HISTORY: Positive for diabetes mellitus and hypertension. SOCIAL HISTORY: The patient has a supportive family. No known substance use. Social use of alcohol. REVIEW OF SYSTEMS: Admits to generalized body weakness with increasing dizziness and lightheadedness, worse on the day of admission. No chest pains, palpitations, or PND. His oral intake has been variable with occasional nausea and dyspepsia, also admits to marked polyuria, nocturia, polydipsia, and about 5-pound or so weight loss. PHYSICAL EXAMINATION: GENERAL: Average-built male in no apparent distress. VITAL SIGNS: Blood pressure of 140/80, pulse of 90 beats per minute and regular, temperature 98, respirations 20. Height is 5 feet 6 inches. Weight is 186 pounds. HEENT: Head is normocephalic. Eyes anicteric with pink conjunctivae. Funduscopy not possible at this time. Ears, nose, and throat, otherwise, normal. NECK: Supple. Thyroid gland is normal in size. No carotid bruits or cervical adenopathy. CARDIOPULMONARY: Some adynamic precordium. S1 and S2 are rapid and regular. LUNGS: Clear to auscultation. ABDOMEN: Flat, soft with positive bowel sounds. EXTREMITIES: No peripheral edema. Pulses are +2 bilaterally. LABORATORY DATA: The initial chemistries showed a BUN of 14, sodium 135, potassium 4.0, chloride 95, CO2 27, glucose 408, and creatinine 0.8. His hemoglobin A1c is 13.7%. ASSESSMENT: This is a 31-year-old male with uncontrolled and decompensated type 2 insulin requiring diabetes of recent evaluation and diagnoses and he is now being referred for diabetic evaluation. PLAN OF MANAGEMENT: We will concur with the present insulin regimen as given, especially in the light of financial ,constraints and lack of medical insurance, we would go ahead and continue the conventional and more affordable insulin therapy as given. We will continue the Novolin 70/30 given as 20 units before breakfast and 20 units before dinner as ordered. We will modify the coverage scale to prevent hypoglycemia and detailed orders have been given. We will initiate diabetic education and dietary instructions. Also, ____ this admission. We will continue the insulin therapy at least this admission because of the underlying glucotoxicity as noted. We will follow and advice accordingly. Meri Crow MD
[2017-05-08] MEDS ORDERED: (Novolin 70/30) NPH/Regular 70/30 Units/ml 10 ml vial SC SCH ×2 (07:30)
[2017-05-08 13:20] LABS: C-PEPTIDE 0.71 ng/mL (0.80-3.85)
== END 2017-05-07 17:45 | disposition home or self-care (01) ==
LOC: C.ER 09:23 → C.9E 11:36 → EEVIPCON 11:36 → C.3T 12:14
PROVIDERS: ADMIT Hospitalist; ATTEND Hospitalist
DX: E11.65 Type 2 diabetes mellitus with hyperglycemia (principal); E11.649 Type 2 diabetes mellitus with hypoglycemia without coma; I10 Essential (primary) hypertension; Z79.4 Long term (current) use of insulin
CPT/HCPCS: 36415; 71045; 80053; 80061; 80074; 81001; 82009; 82803; 82948; 83036; 83525; 83735; 84100; 84439; 84443; 84681; 85025; 86341; 96372; 99285; G0378; J7040